=== PATIENT | female | born 1930 | race Caucasian/White ===

== ENCOUNTER 2016-10-28 14:32 | Emergency (ER) | payer OTHER, MEDICARE ==
[~2016-10-28] VITALS: Ht 152.4 cm; Wt 51.3 kg
[~2016-10-28 14:32] MED LIST: BROVANA15 MCG/2 M IH; BUDESONIDE0.5 MG/2 M IH; DAILY VITE1 EAC1 PO; ISOSORBIDE MONO30 MG PO; LEXAPRO20 MG PO; OMEPRAZOLE40 M1 PO; PROAIR HFA8.5 GM IH; TAZTIA XT120 M1 PO
[2016-10-28 15:09] LABS: HEMATOCRIT 43.3 % (36.0-46.0); MCH 28.5 PG (29.0-34.0); MCHC 32.6 G/DL (30.0-36.0); MCV 87.5 FL (83-99); PLATELET COUNT 275 K/uL (156-360); RBC DIS.WIDTH-CV 14.1 % (11.8-14.6); RBC DIS.WIDTH-SD 44.6 % (39-53); RED BLOOD COUNT 4.95 M/uL (3.80-5.20)
[2016-10-28 15:20] LABS: CHLORIDE 106 mEq/L (99-109); POTASSIUM 3.6 mEq/L (3.7-5.4); SODIUM 146 mEq/L (136-147)
[2016-10-28 15:22] LABS: GLUCOSE 138 mg/dL (70-99)
[2016-10-28 15:23] LABS: ANION GAP 12 MEQ/L (2-14)
[2016-10-28 15:25] LABS: GFR ESTIMATE (CALCULATED) > 59 mL/min/
[2016-10-28 15:26] LABS: UREA NITROGEN (BUN) 15 mg/dL (9-23)
[2016-10-28 15:30] LABS: TROP-I INTERPRETATION NEGATIVE; TROPONIN-I 0.01 ng/mL (0.0-0.30)
[2016-10-28] MEDS ORDERED: PREDNISONE50 MG PO (17:41)
[2016-10-28] MEDS ORDERED: PROVENTIL,2.5 MG/3 M IH (17:41)
[2016-10-28 18:20] VITALS: BP 140/79
== END 2016-10-28 19:18 | disposition home or self-care (01) ==
LOC: EME 14:32
DX: J44.9 Chronic obstructive pulmonary disease, unspecified (principal); E78.5 Hyperlipidemia, unspecified; I10 Essential (primary) hypertension; Z86.000 Personal history of in-situ neoplasm of breast; Z90.11 Acquired absence of right breast and nipple
CPT/HCPCS: 71020; 80048; 84484; 85027; 93005; 94640; 99281; 99284; J7512

== ENCOUNTER 2017-06-12 18:10 | Emergency (ER) | payer OTHER, MEDICARE ==
[~2017-06-12] VITALS: Ht 152.4 cm; Wt 50.5 kg
[~2017-06-12 18:10] MED LIST changes: +PREDNISONE50 MG PO; +PROVENTIL,2.5 MG/3 M IH
[2017-06-12] MEDS ORDERED: ULTRAM50 MG PO (21:36)
[2017-06-12 21:44] VITALS: BP 106/66
== END 2017-06-12 21:46 | disposition home or self-care (01) ==
LOC: EME 18:10
DX: S30.0XXA Contusion of lower back and pelvis, initial encounter (principal); M54.5 Low back pain; W18.30XA Fall on same level, unspecified, initial encounter; E78.5 Hyperlipidemia, unspecified; I10 Essential (primary) hypertension; J44.9 Chronic obstructive pulmonary disease, unspecified; Z90.11 Acquired absence of right breast and nipple; Z87.891 Personal history of nicotine dependence
CPT/HCPCS: 72100; 72170; 99281; 99284

== ENCOUNTER 2017-07-03 17:36 | Emergency (ER) | payer OTHER, MEDICARE ==
[~2017-07-03] VITALS: Ht 152.4 cm; Wt 48.7 kg
[~2017-07-03 17:36] MED LIST changes: +ULTRAM50 MG PO
[2017-07-03 18:56] LABS: BASOPHIL COUNT 0.1 K/uL (0-0.1); EOSINOPHIL (%) 5.8 % (0-5); EOSINOPHIL COUNT 0.4 K/uL (0-0.3); HEMATOCRIT 45.9 % (36.0-46.0); IMMATURE GRANULOCYTE (%) 0.1 % (0.0-0.7); INSTRUMENT ABS NEUTROPHIL CT 4.3 K/uL; LYMPHOCYTE COUNT 1.3 K/uL (1.0-2.8); MCHC 31.8 G/DL (30.0-36.0); MCV 87.9 FL (83-99); MEAN PLAT.VOLUME 10.1 uM^3 (9.5-12.4); MONOCYTE (%) 9.4 % (3-12); MONOCYTE COUNT 0.6 K/uL (0-0.8); NEUTROPHIL (%) 64.1 % (45-76); NEUTROPHIL COUNT 4.3 K/uL (1.8-6.4); PLATELET COUNT 266 K/uL (156-360); RBC DIS.WIDTH-CV 15.5 % (11.8-14.6); RBC DIS.WIDTH-SD 50.4 % (39-53); RED BLOOD COUNT 5.22 M/uL (3.80-5.20); WHITE BLOOD COUNT 6.7 K/uL (4.1-10.2)
[2017-07-03 19:06] LABS: INTER. NORMALIZED RATIO 1.1; PROTHROMBIN TIME 11.7 SEC (10.2-12.9)
[2017-07-03 19:08] LABS: CHLORIDE 104 mEq/L (99-109); POTASSIUM 3.6 mEq/L (3.7-5.4); SODIUM 141 mEq/L (136-147)
[2017-07-03 19:09] LABS: PTT 29.5 SEC (25-37)
[2017-07-03 19:10] LABS: GLUCOSE 104 mg/dL (70-99)
[2017-07-03 19:11] LABS: ANION GAP 10 MEQ/L (2-14)
[2017-07-03 19:12] LABS: TOTAL BILIRUBIN 0.5 mg/dL (0.0-1.0)
[2017-07-03 19:13] LABS: ALKALINE PHOSPHATASE 105 IU/L (3-129)
[2017-07-03 19:14] LABS: GFR ESTIMATE (CALCULATED) > 59 mL/min/
[2017-07-03 19:15] LABS: DIRECT BILIRUBIN 0.2 mg/dL (0.0-0.3); UREA NITROGEN (BUN) 16 mg/dL (9-23)
[2017-07-03 19:19] LABS: TROP-I INTERPRETATION NEGATIVE; TROPONIN-I < 0.01 ng/mL (0.0-0.30)
[2017-07-03] MEDS ORDERED: ZITHROMAX250 MG PO (20:33)
[2017-07-03 21:19] VITALS: BP 134/94
== END 2017-07-03 21:21 | disposition home or self-care (01) ==
LOC: EME 17:36
PROVIDERS: Emergency Medicine
DX: J44.1 Chronic obstructive pulmonary disease with (acute) exacerbation (principal); I10 Essential (primary) hypertension; E78.5 Hyperlipidemia, unspecified; K21.9 Gastro-esophageal reflux disease without esophagitis; Z85.9 Personal history of malignant neoplasm, unspecified; Z90.11 Acquired absence of right breast and nipple; Z87.891 Personal history of nicotine dependence
CPT/HCPCS: 71020; 80048; 80076; 83605; 83880; 84484; 85025; 85610; 85730; 94640; 99281; 99285; J1100

== ENCOUNTER 2017-07-11 13:22 | Inpatient (IN) | payer OTHER, MEDICARE ==
[~2017-07-11] VITALS: Ht 152.4 cm; Wt 46.7 kg
[~2017-07-11 13:22] MED LIST changes: +LEXAPRO10 MG PO; -LEXAPRO20 MG PO; +ZITHROMAX250 MG PO
[2017-07-11 15:06] LABS: EOSINOPHIL (%) 0.1 % (0-5); HEMATOCRIT 44.3 % (36.0-46.0); IMMATURE GRANULOCYTE (%) 0.9 % (0.0-0.7); IMMATURE GRANULOCYTE COUNT 0.1 K/uL; INSTRUMENT ABS NEUTROPHIL CT 12.6 K/uL; LYMPHOCYTE COUNT 0.3 K/uL (1.0-2.8); MCH 28.5 PG (29.0-34.0); MCHC 32.3 G/DL (30.0-36.0); MCV 88.4 FL (83-99); MEAN PLAT.VOLUME 10.6 uM^3 (9.5-12.4); MONOCYTE (%) 1.8 % (3-12); MONOCYTE COUNT 0.2 K/uL (0-0.8); NEUTROPHIL (%) 94.7 % (45-76); NEUTROPHIL COUNT 12.6 K/uL (1.8-6.4); PLATELET COUNT 257 K/uL (156-360); RBC DIS.WIDTH-CV 15.9 % (11.8-14.6); RED BLOOD COUNT 5.01 M/uL (3.80-5.20); WHITE BLOOD COUNT 13.3 K/uL (4.1-10.2)
[2017-07-11 15:14] LABS: CHLORIDE 103 mEq/L (99-109); POTASSIUM 3.3 mEq/L (3.7-5.4); SODIUM 142 mEq/L (136-147)
[2017-07-11 15:17] LABS: GLUCOSE 204 mg/dL (70-99)
[2017-07-11 15:18] LABS: ANION GAP 13 MEQ/L (2-14)
[2017-07-11 15:19] LABS: TOTAL BILIRUBIN 0.5 mg/dL (0.0-1.0)
[2017-07-11 15:20] LABS: ALKALINE PHOSPHATASE 92 IU/L (3-129)
[2017-07-11 15:21] LABS: GFR ESTIMATE (CALCULATED) > 59 mL/min/
[2017-07-11 15:22] LABS: UREA NITROGEN (BUN) 20 mg/dL (9-23)
[2017-07-11 15:26] LABS: TROP-I INTERPRETATION NEGATIVE; TROPONIN-I 0.01 ng/mL (0.0-0.30)
[2017-07-11] MEDS ORDERED: MUCINEX1200 MG PO (16:33)
[2017-07-11] MEDS ORDERED: VITAMIN D2000 UNI1 PO (16:34)
[2017-07-11] MEDS ORDERED: TYLENOL REGULA325 MG PO (16:35)
[2017-07-11 18:04] LABS: Estimated Average Glucose 134 mg/dL (70-123); HEMOGLOBIN A1c (GLYCOHEMOGLOB) 6.3 % HGB (Below 5.7)
[2017-07-11 18:10] LABS: ADD MIUA? NO; BILIRUBIN NEGATIVE; BLOOD NEGATIVE; COLOR YELLOW ((YELLOW)); GLUCOSE (STRIP) NEGATIVE; KETONES NEGATIVE; LEUKOCYTES NEGATIVE; NITRITE NEGATIVE; PROTEIN (STRIP) NEGATIVE; SPECIFIC GRAVITY 1.012 (1.000-1.030); UCUL ADDED? NO; UROBILINOGEN 0.2 MG/DL (0.2-1.0)
[2017-07-11 18:25] VITALS: BP 147/91
[2017-07-11 22:20] LABS: POINT-OF-CARE METER ID UU13113717
[2017-07-11 22:31] LABS: TROP-I INTERPRETATION NEGATIVE; TROPONIN-I < 0.01 ng/mL (0.0-0.30)
[2017-07-11 23:43] VITALS: BP 135/81
[2017-07-12] VITALS (7 sets, daily range): BP systolic 121–167; BP diastolic 71–119
[2017-07-12 04:14] LABS: EOSINOPHIL (%) 0 % (0-5); HEMATOCRIT 31.8 % (36.0-46.0); IMMATURE GRANULOCYTE COUNT 0.1 K/uL; INSTRUMENT ABS NEUTROPHIL CT 6.6 K/uL; LYMPHOCYTE COUNT 0.3 K/uL (1.0-2.8); MCH 28.7 PG (29.0-34.0); MCHC 31.8 G/DL (30.0-36.0); MCV 90.3 FL (83-99); MEAN PLAT.VOLUME 11.2 uM^3 (9.5-12.4); MONOCYTE (%) 0.7 % (3-12); MONOCYTE COUNT 0.1 K/uL (0-0.8); NEUTROPHIL COUNT 6.6 K/uL (1.8-6.4); PLATELET COUNT 182 K/uL (156-360); RBC DIS.WIDTH-CV 16.1 % (11.8-14.6); RBC DIS.WIDTH-SD 53.1 % (39-53); RED BLOOD COUNT 3.52 M/uL (3.80-5.20)
[2017-07-12 04:18] LABS: POTASSIUM 3.1 mEq/L (3.7-5.4)
[2017-07-12 04:21] LABS: ANION GAP 24 MEQ/L (2-14)
[2017-07-12 04:22] LABS: CHLORIDE 118 mEq/L (99-109); GLUCOSE 120 mg/dL (70-99); SODIUM 158 mEq/L (136-147)
[2017-07-12 04:23] LABS: GFR ESTIMATE (CALCULATED) > 59 mL/min/
[2017-07-12 04:24] LABS: UREA NITROGEN (BUN) 12 mg/dL (9-23)
[2017-07-12 04:31] LABS: TROP-I INTERPRETATION NEGATIVE; TROPONIN-I < 0.01 ng/mL (0.0-0.30)
[2017-07-12 08:49] LABS: POINT-OF-CARE METER ID UU13113717
[2017-07-12 08:52] LABS: ANION GAP 12 MEQ/L (2-14); CHLORIDE 110 MEQ/L (99-109); GFR ESTIMATE (CALCULATED) > 59 mL/min/; GLUCOSE 149 mg/dL (70-99); UREA NITROGEN (BUN) 16 mg/dL (9-23)
[2017-07-12 08:54] LABS: POTASSIUM 4.2 MEQ/L (3.7-5.4); SODIUM 146 MEQ/L (136-147)
[2017-07-12 12:19] LABS: POINT-OF-CARE METER ID UU13113717
[2017-07-12 17:04] LABS: POINT-OF-CARE METER ID UU14188625
[2017-07-12 21:11] LABS: POINT-OF-CARE METER ID UU14188625
[2017-07-13 01:50] LABS: INFLUENZA A VIRAL ANTIGEN NEGATIVE; INFLUENZA B VIRAL ANTIGEN NEGATIVE
[2017-07-13 07:25] VITALS: BP 188/90
[2017-07-13 11:18] VITALS: BP 142/998
[2017-07-13 12:27] LABS: POINT-OF-CARE METER ID UU13113717
[2017-07-13 15:34] VITALS: BP 148/89
[2017-07-13 17:23] LABS: POINT-OF-CARE METER ID UU14188625
[2017-07-13 19:18] VITALS: BP 152/79
[2017-07-13 21:16] LABS: POINT-OF-CARE METER ID UU14174225
[2017-07-14 00:11] VITALS: BP 150/102
[2017-07-14 00:23] VITALS: BP 145/78
[2017-07-14 03:41] VITALS: BP 153/89
[2017-07-14 07:20] VITALS: BP 165/86
[2017-07-14 08:44] LABS: HEMATOCRIT 41.9 % (36.0-46.0); MCH 27.9 PG (29.0-34.0); MCV 87.3 FL (83-99); MEAN PLAT.VOLUME 10.3 uM^3 (9.5-12.4); RBC DIS.WIDTH-CV 15.8 % (11.8-14.6); RBC DIS.WIDTH-SD 50.4 % (39-53); WHITE BLOOD COUNT 8.3 K/uL (4.1-10.2)
[2017-07-14 08:54] LABS: POINT-OF-CARE METER ID UU14174225
[2017-07-14 09:02] LABS: PLATELET COUNT 242 K/uL (156-360)
[2017-07-14 09:16] LABS: ANION GAP 10 MEQ/L (2-14); CHLORIDE 99 MEQ/L (99-109); GFR ESTIMATE (CALCULATED) > 59 mL/min/; GLUCOSE 162 mg/dL (70-99); MAGNESIUM 1.8 mg/dl (1.3-2.7); SAMPLE HEMOLYSIS CHECK 0; SAMPLE ICTERIC CHECK 0; SAMPLE LIPEMIA CHECK 0; SODIUM 144 MEQ/L (136-147); UREA NITROGEN (BUN) 13 mg/dL (9-23)
[2017-07-14 09:17] LABS: POTASSIUM 2.9 MEQ/L (3.7-5.4)
[2017-07-14 12:49] LABS: POINT-OF-CARE METER ID UU13113717
[2017-07-14 16:41] VITALS: BP 128/78
[2017-07-14 17:11] LABS: POINT-OF-CARE METER ID UU13113717
[2017-07-14 21:46] LABS: POINT-OF-CARE METER ID UU13113717
[2017-07-14 23:21] VITALS: BP 142/95
[2017-07-15 05:56] LABS: HEMATOCRIT 40.1 % (36.0-46.0); MCH 28.3 PG (29.0-34.0); MCHC 31.7 G/DL (30.0-36.0); MCV 89.3 FL (83-99); MEAN PLAT.VOLUME 10.3 uM^3 (9.5-12.4); PLATELET COUNT 222 K/uL (156-360); RBC DIS.WIDTH-SD 52.4 % (39-53); RED BLOOD COUNT 4.49 M/uL (3.80-5.20); WHITE BLOOD COUNT 9.6 K/uL (4.1-10.2)
[2017-07-15 06:43] LABS: ANION GAP 10 MEQ/L (2-14); CHLORIDE 102 MEQ/L (99-109); GFR ESTIMATE (CALCULATED) > 59 mL/min/; GLUCOSE 164 mg/dL (70-99); SAMPLE HEMOLYSIS CHECK 0; SAMPLE ICTERIC CHECK 0; SAMPLE LIPEMIA CHECK 0; SODIUM 143 MEQ/L (136-147)
[2017-07-15 06:46] LABS: MAGNESIUM 2.3 mg/dl (1.3-2.7); POTASSIUM 3.8 MEQ/L (3.7-5.4); UREA NITROGEN (BUN) 30 mg/dL (9-23)
[2017-07-15 07:48] LABS: POINT-OF-CARE METER ID UU14174225
[2017-07-15 08:35] VITALS: BP 130/91
[2017-07-15 12:13] LABS: POINT-OF-CARE METER ID UU13113717; POINT-OF-CARE USER ID STWAMT
[2017-07-15 17:36] LABS: POINT-OF-CARE METER ID UU13113717
[2017-07-15 21:32] LABS: POINT-OF-CARE METER ID UU13113717
[2017-07-15 22:26] VITALS: BP 132/72
[2017-07-16 00:33] VITALS: BP 136/76
[2017-07-16 07:04] VITALS: BP 147/83
[2017-07-16 08:17] LABS: POINT-OF-CARE METER ID UU14174225
[2017-07-16 08:57] LABS: HEMATOCRIT 40.9 % (36.0-46.0); MCH 28.4 PG (29.0-34.0); MCV 88.7 FL (83-99); MEAN PLAT.VOLUME 10.4 uM^3 (9.5-12.4); PLATELET COUNT 229 K/uL (156-360); RBC DIS.WIDTH-CV 16.3 % (11.8-14.6); RED BLOOD COUNT 4.61 M/uL (3.80-5.20); WHITE BLOOD COUNT 9.1 K/uL (4.1-10.2)
[2017-07-16 09:21] LABS: ANION GAP 8 MEQ/L (2-14); CHLORIDE 105 MEQ/L (99-109); GFR ESTIMATE (CALCULATED) > 59 mL/min/; GLUCOSE 155 mg/dL (70-99); POTASSIUM 3.7 MEQ/L (3.7-5.4); SAMPLE HEMOLYSIS CHECK 0; SAMPLE ICTERIC CHECK 0; SAMPLE LIPEMIA CHECK 0; SODIUM 145 MEQ/L (136-147); UREA NITROGEN (BUN) 35 mg/dL (9-23)
[2017-07-16 09:52] LABS: TROP-I INTERPRETATION NEGATIVE; TROPONIN-I 0.02 ng/mL (0.0-0.30)
[2017-07-16 12:01] LABS: POINT-OF-CARE METER ID UU13113717
[2017-07-16 16:28] VITALS: BP 108/67
[2017-07-16 17:41] LABS: POINT-OF-CARE METER ID UU14174225
[2017-07-16 20:35] LABS: POINT-OF-CARE METER ID UU13113717
[2017-07-16 20:55] VITALS: BP 135/69
[2017-07-16 21:51] LABS: METH RESISTANT S AUREUS PCR NEGATIVE (NEGATIVE)
[2017-07-16 21:52] LABS: PROBE CHECK PASS; SPECIMEN PROCESSING CONTROL PASS
[2017-07-17 00:19] VITALS: BP 150/93
[2017-07-17 07:54] VITALS: BP 160/102
[2017-07-17 07:58] LABS: POINT-OF-CARE METER ID UU14188625
[2017-07-17 09:24] LABS: INTERNAL CONTROL VALID? YES
[2017-07-17] MEDS ORDERED: PREDNISONE20 MG PO (09:26)
[2017-07-17] MEDS ORDERED: LEVAQUIN750 MG PO (09:52)
[2017-07-17] MEDS ORDERED: CARDIZEM CD,CA240 MG PO (10:52)
[2017-07-17] MEDS ORDERED: XOPENEX1.25 MG/3 IH (10:55)
== END 2017-07-17 15:08 | DRG 871 ==
LOC: EME 13:22 → 5SOUTH 16:34 → EDOF 16:34 → ENRESERV 16:37 → 5SOUTH 18:03
PROVIDERS: Emergency Medicine; Hospitalist; Internal Medicine; Nurse Practitioner Adult Health; Nurse Practitioner Family; Physician Assistant Medical
DX: A41.9 Sepsis, unspecified organism (principal); J18.9 Pneumonia, unspecified organism; I48.2 Chronic atrial fibrillation; J44.0 Chronic obstructive pulmonary disease with (acute) lower respiratory infection; J44.1 Chronic obstructive pulmonary disease with (acute) exacerbation; R09.02 Hypoxemia; E87.2 Acidosis; I27.20 Pulmonary hypertension, unspecified; I08.1 Rheumatic disorders of both mitral and tricuspid valves; Y95 Nosocomial condition; E11.9 Type 2 diabetes mellitus without complications; F03.90 Unspecified dementia, unspecified severity, without behavioral disturbance, psychotic disturbance, mood disturbance, and anxiety; I10 Essential (primary) hypertension; K21.9 Gastro-esophageal reflux disease without esophagitis; R32 Unspecified urinary incontinence; Z66 Do not resuscitate; Z87.891 Personal history of nicotine dependence; Z23 Encounter for immunization
CPT/HCPCS: 70450; 71010; 71020; 71250; 74176; 80048; 80048 91; 80053; 80202; 81003; 82040; 82310; 82948; 83036; 83605; 83735; 83880; 84484; 85025; 85027; 87040; 87070; 87205; 87449; 87502; 87641; 90686; 92610 GN; 93005; 93306; 94640; 94640 76; 94667; 94668; 94760; 94799; 97530 GP; 99202; 99281; 99285; J1644; J1815; J2543; J2920; J2930; J3370; J3475; J3480; J7030; J7050; J7512

== ENCOUNTER 2017-07-21 10:56 | Observation (INO) | payer OTHER, MEDICARE ==
[~2017-07-21] VITALS: Ht 147.3 cm; Wt 47.0 kg
[~2017-07-21 10:56] MED LIST changes: +CARDIZEM CD,CA240 MG PO; +LEVAQUIN750 MG PO; +MUCINEX1200 MG PO; +PREDNISONE20 MG PO; +TYLENOL REGULA325 MG PO; +VITAMIN D2000 UNI1 PO; +XOPENEX1.25 MG/3 IH
[2017-07-21 12:00] LABS: EOSINOPHIL (%) 0.2 % (0-5); HEMATOCRIT 43.3 % (36.0-46.0); IMMATURE GRANULOCYTE COUNT 0.2 K/uL; INSTRUMENT ABS NEUTROPHIL CT 16.4 K/uL; LYMPHOCYTE COUNT 0.6 K/uL (1.0-2.8); MCH 28.5 PG (29.0-34.0); MCHC 32.3 G/DL (30.0-36.0); MONOCYTE (%) 5.6 % (3-12); NEUTROPHIL (%) 89.7 % (45-76); NEUTROPHIL COUNT 16.4 K/uL (1.8-6.4); RBC DIS.WIDTH-CV 16.5 % (11.8-14.6); RED BLOOD COUNT 4.92 M/uL (3.80-5.20); WHITE BLOOD COUNT 18.3 K/uL (4.1-10.2)
[2017-07-21 12:19] LABS: CHLORIDE 103 mEq/L (99-109); SODIUM 140 mEq/L (136-147)
[2017-07-21 12:21] LABS: ANION GAP 10 MEQ/L (2-14)
[2017-07-21 12:23] LABS: GFR ESTIMATE (CALCULATED) > 59 mL/min/; GLUCOSE 118 mg/dL (70-99); POTASSIUM 4.5 mEq/L (3.7-5.4); TROP-I INTERPRETATION NEGATIVE; TROPONIN-I 0.01 ng/mL (0.0-0.30)
[2017-07-21 12:24] LABS: UREA NITROGEN (BUN) 34 mg/dL (9-23)
[2017-07-21 12:45] LABS: PLAT.SUFFICIENCY ADEQUATE
[2017-07-21 13:01] LABS: PLATELET COUNT UNABLE TO REPORT K/uL (156-360)
[2017-07-21] MEDS ORDERED: POTASSIUM CHLO20 ME2 PO (16:11)
[2017-07-21] MEDS ORDERED: PREDNISONE20 MG PO (16:13)
[2017-07-21] MEDS ORDERED: WELLBUTRIN SR100 MG PO (16:15)
[2017-07-21] MEDS ORDERED: DULCOLAX10 MG PR (16:19)
[2017-07-21] MEDS ORDERED: MILK OF MAGN PO (16:20)
[2017-07-21] MEDS ORDERED: MIRALAX17 GM PO (16:21)
[2017-07-21] MEDS ORDERED: TRAMADOL HCL50 MG PO (16:22)
[2017-07-21 16:50] VITALS: BP 117/65
[2017-07-21 19:26] LABS: TROP-I INTERPRETATION NEGATIVE; TROPONIN-I 0.01 ng/mL (0.0-0.30)
[2017-07-21 19:36] VITALS: BP 138/76
[2017-07-22 00:07] VITALS: BP 121/75
[2017-07-22 01:14] LABS: TROP-I INTERPRETATION NEGATIVE; TROPONIN-I < 0.01 ng/mL (0.0-0.30)
[2017-07-22 03:51] VITALS: BP 129/79
[2017-07-22 05:35] LABS: MCH 28.9 PG (29.0-34.0); MCHC 32.4 G/DL (30.0-36.0); MCV 89.1 FL (83-99); MEAN PLAT.VOLUME 10.5 uM^3 (9.5-12.4); RBC DIS.WIDTH-CV 17.2 % (11.8-14.6); RBC DIS.WIDTH-SD 55.4 % (39-53); WHITE BLOOD COUNT 14.1 K/uL (4.1-10.2)
[2017-07-22 05:41] LABS: PLATELET COUNT 195 K/uL (156-360)
[2017-07-22 05:58] LABS: ALKALINE PHOSPHATASE 59 IU/L (3-129); ANION GAP 6 MEQ/L (2-14); CHLORIDE 103 MEQ/L (99-109); GFR ESTIMATE (CALCULATED) > 59 mL/min/; POTASSIUM 4.4 MEQ/L (3.7-5.4); SAMPLE HEMOLYSIS CHECK 0; SAMPLE ICTERIC CHECK 0; SAMPLE LIPEMIA CHECK 0; SODIUM 144 MEQ/L (136-147); TOTAL BILIRUBIN 0.5 MG/DL (0.0-1.0); UREA NITROGEN (BUN) 36 mg/dL (9-23)
[2017-07-22 05:59] LABS: GLUCOSE 85 mg/dL (70-99)
[2017-07-22 08:20] VITALS: BP 161/86
[2017-07-22 11:16] VITALS: BP 121/68
[2017-07-22] MEDS ORDERED: WELLBUTRIN SR100 MG PO (14:17)
== END 2017-07-22 15:12 ==
LOC: EME 10:56 → EDOF 14:18 → 5WEST 14:18 → ENRESERV 14:19 → EDOF 14:48 → 5WEST 16:46
PROVIDERS: Emergency Medicine; Internal Medicine
DX: R07.9 Chest pain, unspecified (principal); R10.13 Epigastric pain; J44.0 Chronic obstructive pulmonary disease with (acute) lower respiratory infection; J18.9 Pneumonia, unspecified organism; F01.50 Vascular dementia, unspecified severity, without behavioral disturbance, psychotic disturbance, mood disturbance, and anxiety; K59.00 Constipation, unspecified; I10 Essential (primary) hypertension; E78.5 Hyperlipidemia, unspecified; K21.9 Gastro-esophageal reflux disease without esophagitis; I48.91 Unspecified atrial fibrillation; F32.9 Major depressive disorder, single episode, unspecified; Z66 Do not resuscitate; Z85.9 Personal history of malignant neoplasm, unspecified; Z90.11 Acquired absence of right breast and nipple; Z87.891 Personal history of nicotine dependence
CPT/HCPCS: 71010; 74177; 80048; 80053; 82607; 84443; 84484; 85025; 85027; 85379; 85610; 85730; 93005; 94640; 94640 76; 99202; 99281; 99285; G0378; J1650; J7030; J7512; J7626

== ENCOUNTER 2017-07-25 01:31 | Emergency (ER) | payer OTHER, MEDICARE ==
[~2017-07-25] VITALS: Ht 162.6 cm; Wt 51.9 kg
[~2017-07-25 01:31] MED LIST changes: +DULCOLAX10 MG PR; +MILK OF MAGN PO; +MIRALAX17 GM PO; +POTASSIUM CHLO20 ME2 PO; +TRAMADOL HCL50 MG PO; +WELLBUTRIN SR100 MG PO
[2017-07-25 02:15] LABS: HEMATOCRIT 40.4 % (36.0-46.0); MCHC 32.4 G/DL (30.0-36.0); MCV 89.4 FL (83-99); MEAN PLAT.VOLUME 10.4 uM^3 (9.5-12.4); PLATELET COUNT 190 K/uL (156-360); RBC DIS.WIDTH-CV 17.4 % (11.8-14.6); RBC DIS.WIDTH-SD 56.1 % (39-53); RED BLOOD COUNT 4.52 M/uL (3.80-5.20)
[2017-07-25 02:21] LABS: PROTHROMBIN TIME 10.9 SEC (10.2-12.9)
[2017-07-25 02:24] LABS: PTT 25.7 SEC (25-37)
[2017-07-25 02:25] LABS: CHLORIDE 106 mEq/L (99-109); POTASSIUM 4.5 mEq/L (3.7-5.4); SODIUM 140 mEq/L (136-147)
[2017-07-25 02:28] LABS: ANION GAP 11 MEQ/L (2-14)
[2017-07-25 02:29] LABS: GLUCOSE 135 mg/dL (70-99)
[2017-07-25 02:31] LABS: GFR ESTIMATE (CALCULATED) > 59 mL/min/; UREA NITROGEN (BUN) 30 mg/dL (9-23)
[2017-07-25 02:36] LABS: TROP-I INTERPRETATION NEGATIVE; TROPONIN-I < 0.01 ng/mL (0.0-0.30)
[2017-07-25 07:16] VITALS: BP 150/93
== END 2017-07-25 07:17 ==
LOC: EME → EDBD 01:31 → EME 01:31
PROVIDERS: Emergency Medicine
DX: R06.02 Shortness of breath (principal); I10 Essential (primary) hypertension; K21.9 Gastro-esophageal reflux disease without esophagitis; J44.9 Chronic obstructive pulmonary disease, unspecified; E78.5 Hyperlipidemia, unspecified; Z85.3 Personal history of malignant neoplasm of breast; Z87.891 Personal history of nicotine dependence
CPT/HCPCS: 71020; 80048; 84484; 85027; 85610; 85730; 93005; 99281; 99285

== ENCOUNTER 2017-08-11 10:56 | Observation (INO) | payer OTHER, MEDICARE ==
[~2017-08-11] VITALS: Ht 152.4 cm; Wt 46.5 kg
[~2017-08-11 10:56] MED LIST changes: +GUAIFENESIN200 M2 PO; -MUCINEX1200 MG PO
[2017-08-11 11:49] LABS: EOSINOPHIL (%) 0.2 % (0-5); HEMATOCRIT 39.3 % (36.0-46.0); IMMATURE GRANULOCYTE (%) 1.4 % (0.0-0.7); IMMATURE GRANULOCYTE COUNT 0.1 K/uL; INSTRUMENT ABS NEUTROPHIL CT 6.2 K/uL; LYMPHOCYTE COUNT 0.9 K/uL (1.0-2.8); MCH 29.8 PG (29.0-34.0); MCHC 32.6 G/DL (30.0-36.0); MCV 91.6 FL (83-99); MEAN PLAT.VOLUME 10.3 uM^3 (9.5-12.4); MONOCYTE (%) 13.1 % (3-12); MONOCYTE COUNT 1.1 K/uL (0-0.8); NEUTROPHIL (%) 74.6 % (45-76); NEUTROPHIL COUNT 6.2 K/uL (1.8-6.4); PLATELET COUNT 214 K/uL (156-360); RBC DIS.WIDTH-CV 17.2 % (11.8-14.6); RBC DIS.WIDTH-SD 57.3 % (39-53); RED BLOOD COUNT 4.29 M/uL (3.80-5.20); WHITE BLOOD COUNT 8.4 K/uL (4.1-10.2)
[2017-08-11 11:54] LABS: INTER. NORMALIZED RATIO 1.1; PROTHROMBIN TIME 12.5 SEC (10.2-12.9)
[2017-08-11 11:56] LABS: PTT 26.6 SEC (25-37)
[2017-08-11 11:57] LABS: CHLORIDE 106 mEq/L (99-109); POTASSIUM 4.6 mEq/L (3.7-5.4); SODIUM 139 mEq/L (136-147)
[2017-08-11 11:59] LABS: GLUCOSE 119 mg/dL (70-99)
[2017-08-11 12:00] LABS: ANION GAP 10 MEQ/L (2-14)
[2017-08-11 12:03] LABS: GFR ESTIMATE (CALCULATED) > 59 mL/min/
[2017-08-11 12:04] LABS: UREA NITROGEN (BUN) 23 mg/dL (9-23)
[2017-08-11 12:09] LABS: TROP-I INTERPRETATION NEGATIVE; TROPONIN-I 0.01 ng/mL (0.0-0.30)
[2017-08-11] MEDS ORDERED: BUSPAR5 MG PO (14:04)
[2017-08-11] MEDS ORDERED: SENNA8.6 MG PO (14:14)
[2017-08-11] MEDS ORDERED: WELLBUTRIN100 MG PO (14:16)
[2017-08-11] MEDS ORDERED: COLACE100 MG PO (14:17)
[2017-08-11] MEDS ORDERED: DUONEB 2.5-0.5 M3 ML AEROSOL (14:20)
[2017-08-11] MEDS ORDERED: VENTOLIN HFA18 GM IH (14:25)
[2017-08-11 14:31] VITALS: BP 127/88
[2017-08-11 20:00] VITALS: BP 127/83
[2017-08-11 20:40] LABS: TROP-I INTERPRETATION NEGATIVE; TROPONIN-I 0.01 ng/mL (0.0-0.30)
[2017-08-11 23:55] VITALS: BP 106/70
[2017-08-12 03:40] VITALS: BP 117/72
[2017-08-12 05:58] LABS: TROP-I INTERPRETATION NEGATIVE; TROPONIN-I 0.02 ng/mL (0.0-0.30)
[2017-08-12 06:00] LABS: ANION GAP 11 MEQ/L (2-14); CHLORIDE 103 MEQ/L (99-109); GFR ESTIMATE (CALCULATED) > 59 mL/min/; GLUCOSE 96 mg/dL (70-99); POTASSIUM 3.6 MEQ/L (3.7-5.4); SAMPLE HEMOLYSIS CHECK 0; SAMPLE ICTERIC CHECK 0; SAMPLE LIPEMIA CHECK 0; SODIUM 144 MEQ/L (136-147); UREA NITROGEN (BUN) 22 mg/dL (9-23)
[2017-08-12 07:09] VITALS: BP 133/83
[2017-08-12] MEDS ORDERED: PREDNISONE20 MG PO (09:49)
[2017-08-12] MEDS ORDERED: AZITHROMYCIN500 M1 PO (09:49)
[2017-08-12 11:28] VITALS: BP 141/74
== END 2017-08-12 13:04 ==
LOC: EME 10:56 → EDOF 13:07 → 5WEST 13:07 → ENRESERV 13:08 → 5WEST 14:20
PROVIDERS: Emergency Medicine; Internal Medicine
DX: I11.0 Hypertensive heart disease with heart failure (principal); I50.33 Acute on chronic diastolic (congestive) heart failure; I27.20 Pulmonary hypertension, unspecified; J44.9 Chronic obstructive pulmonary disease, unspecified; Z99.81 Dependence on supplemental oxygen; F03.90 Unspecified dementia, unspecified severity, without behavioral disturbance, psychotic disturbance, mood disturbance, and anxiety; I48.91 Unspecified atrial fibrillation; Z86.19 Personal history of other infectious and parasitic diseases; Z87.891 Personal history of nicotine dependence; I34.0 Nonrheumatic mitral (valve) insufficiency; I36.1 Nonrheumatic tricuspid (valve) insufficiency; Z66 Do not resuscitate
CPT/HCPCS: 71010; 80048; 83880; 84484; 85025; 85610; 85730; 93005; 94640; 94799; 99202; 99281; 99284; G0378; J1650; J1940; J7512

== ENCOUNTER 2017-08-30 14:59 | Inpatient (IN) | payer OTHER, MEDICARE ==
[~2017-08-30] VITALS: Ht 152.4 cm; Wt 47.1 kg
[~2017-08-30 14:59] MED LIST changes: +AZITHROMYCIN500 M1 PO; +BUSPAR5 MG PO; +COLACE100 MG PO; +DUONEB 2.5-0.5 M3 ML AEROSOL; +SENNA8.6 MG PO; +VENTOLIN HFA18 GM IH; +WELLBUTRIN100 MG PO
[2017-08-30 16:47] LABS: BASOPHIL COUNT 0.1 K/uL (0-0.1); EOSINOPHIL (%) 0.2 % (0-5); HEMATOCRIT 37.2 % (36.0-46.0); IMMATURE GRANULOCYTE (%) 0.7 % (0.0-0.7); IMMATURE GRANULOCYTE COUNT 0.1 K/uL; INSTRUMENT ABS NEUTROPHIL CT 10.7 K/uL; LYMPHOCYTE COUNT 0.7 K/uL (1.0-2.8); MCH 30.3 PG (29.0-34.0); MCHC 32.5 G/DL (30.0-36.0); MCV 93.2 FL (83-99); MEAN PLAT.VOLUME 9.8 uM^3 (9.5-12.4); MONOCYTE (%) 9.5 % (3-12); MONOCYTE COUNT 1.2 K/uL (0-0.8); NEUTROPHIL (%) 83.9 % (45-76); NEUTROPHIL COUNT 10.7 K/uL (1.8-6.4); PLATELET COUNT 197 K/uL (156-360); RBC DIS.WIDTH-CV 16.3 % (11.8-14.6); RBC DIS.WIDTH-SD 55.5 % (39-53); RED BLOOD COUNT 3.99 M/uL (3.80-5.20); WHITE BLOOD COUNT 12.7 K/uL (4.1-10.2)
[2017-08-30 16:55] LABS: CHLORIDE 104 mEq/L (99-109); SODIUM 141 mEq/L (136-147)
[2017-08-30 16:58] LABS: ANION GAP 11 MEQ/L (2-14)
[2017-08-30 16:59] LABS: TOTAL BILIRUBIN 0.6 mg/dL (0.0-1.0)
[2017-08-30 17:00] LABS: ALKALINE PHOSPHATASE 61 IU/L (3-129)
[2017-08-30 17:01] LABS: GFR ESTIMATE (CALCULATED) > 59 mL/min/
[2017-08-30 17:02] LABS: UREA NITROGEN (BUN) 12 mg/dL (9-23)
[2017-08-30 17:07] LABS: TROP-I INTERPRETATION NEGATIVE; TROPONIN-I 0.02 ng/mL (0.0-0.30)
[2017-08-30 17:24] LABS: GLUCOSE 124 mg/dL (70-99)
[2017-08-30] MEDS ORDERED: LASIX20 MG PO (19:41)
[2017-08-30] MEDS ORDERED: LEVAQUIN500 MG PO (19:45)
[2017-08-30] MEDS ORDERED: OMEPRAZOLE40 M1 PO (19:49)
[2017-08-30] MEDS ORDERED: BROVANA15 MCG/2 M IH (19:51)
[2017-08-30] MEDS ORDERED: DILTIAZEM 24HR240 MG PO (19:55)
[2017-08-30] MEDS ORDERED: SODIUM CHLOR1L 0.9 IV (20:06)
[2017-08-30] MEDS ORDERED: VENTOLIN HFA18 GM IH ×2 (20:12→20:13)
[2017-08-30 22:56] LABS: ADD MIUA? YES; BILIRUBIN NEGATIVE; BLOOD NEGATIVE; COLOR YELLOW ((YELLOW)); GLUCOSE (STRIP) NEGATIVE; KETONES NEGATIVE; LEUKOCYTES TRACE; NITRITE NEGATIVE; PROTEIN (STRIP) NEGATIVE; SPECIFIC GRAVITY 1.012 (1.000-1.030); UROBILINOGEN 0.2 MG/DL (0.2-1.0)
[2017-08-30 23:01] LABS: BACTERIA NONE SEEN /HPF; EPITHELIAL CELLS RARE /HPF; HYALINE CASTS 0-5 /LPF; MUCUS TRACE /LPF; RED BLOOD CELLS 0-5 /HPF (0-5); UCUL ADDED? NO; WHITE BLOOD CELLS 0-5 /HPF (0-5)
[2017-08-31 06:01] LABS: EOSINOPHIL (%) 0 % (0-5); IMMATURE GRANULOCYTE COUNT 0.1 K/uL; INSTRUMENT ABS NEUTROPHIL CT 11.9 K/uL; LYMPHOCYTE COUNT 0.3 K/uL (1.0-2.8); MCH 29.7 PG (29.0-34.0); MCV 92.8 FL (83-99); MEAN PLAT.VOLUME 10.5 uM^3 (9.5-12.4); MONOCYTE (%) 1.4 % (3-12); MONOCYTE COUNT 0.2 K/uL (0-0.8); NEUTROPHIL (%) 95.2 % (45-76); NEUTROPHIL COUNT 11.9 K/uL (1.8-6.4); PLATELET COUNT 197 K/uL (156-360); RBC DIS.WIDTH-CV 16.3 % (11.8-14.6); RBC DIS.WIDTH-SD 55.9 % (39-53); RED BLOOD COUNT 3.77 M/uL (3.80-5.20); WHITE BLOOD COUNT 12.5 K/uL (4.1-10.2)
[2017-08-31 06:26] LABS: ALKALINE PHOSPHATASE 58 IU/L (3-129); ANION GAP 10 MEQ/L (2-14); CHLORIDE 107 MEQ/L (99-109); GFR ESTIMATE (CALCULATED) > 59 mL/min/; GLUCOSE 180 mg/dL (70-99); POTASSIUM 4.2 MEQ/L (3.7-5.4); SAMPLE HEMOLYSIS CHECK 0; SAMPLE ICTERIC CHECK 0; SAMPLE LIPEMIA CHECK 0; SODIUM 143 MEQ/L (136-147); TOTAL BILIRUBIN 0.4 MG/DL (0.0-1.0); UREA NITROGEN (BUN) 18 mg/dL (9-23)
[2017-08-31 07:57] LABS: INTERNAL CONTROL VALID? YES
[2017-08-31 08:20] VITALS: BP 110/61
[2017-08-31 11:23] VITALS: BP 109/67
[2017-08-31 15:25] VITALS: BP 110/56
[2017-08-31 19:46] VITALS: BP 81/52
[2017-08-31 20:18] VITALS: BP 106/58
[2017-08-31 23:17] VITALS: BP 105/62
[2017-09-01 03:52] VITALS: BP 108/65
[2017-09-01 07:07] VITALS: BP 108/72
[2017-09-01 09:06] LABS: HEMATOCRIT 33.8 % (36.0-46.0); MCHC 32.5 G/DL (30.0-36.0); MCV 92.1 FL (83-99); MEAN PLAT.VOLUME 10.1 uM^3 (9.5-12.4); PLATELET COUNT 223 K/uL (156-360); RBC DIS.WIDTH-CV 16.7 % (11.8-14.6); RED BLOOD COUNT 3.67 M/uL (3.80-5.20); WHITE BLOOD COUNT 12.4 K/uL (4.1-10.2)
[2017-09-01 09:35] LABS: ANION GAP 9 MEQ/L (2-14); CHLORIDE 109 MEQ/L (99-109); GFR ESTIMATE (CALCULATED) > 59 mL/min/; GLUCOSE 134 mg/dL (70-99); POTASSIUM 3.8 MEQ/L (3.7-5.4); SAMPLE HEMOLYSIS CHECK 0; SAMPLE ICTERIC CHECK 0; SAMPLE LIPEMIA CHECK 0; SODIUM 145 MEQ/L (136-147); UREA NITROGEN (BUN) 22 mg/dL (9-23)
[2017-09-01 16:21] VITALS: BP 117/65
[2017-09-01 23:30] VITALS: BP 135/88
[2017-09-02 00:19] VITALS: BP 135/62
[2017-09-02 06:14] LABS: EOSINOPHIL (%) 0.1 % (0-5); HEMATOCRIT 33.7 % (36.0-46.0); IMMATURE GRANULOCYTE (%) 0.6 % (0.0-0.7); IMMATURE GRANULOCYTE COUNT 0.1 K/uL; INSTRUMENT ABS NEUTROPHIL CT 9.3 K/uL; LYMPHOCYTE COUNT 0.3 K/uL (1.0-2.8); MCH 29.9 PG (29.0-34.0); MCHC 32.3 G/DL (30.0-36.0); MCV 92.6 FL (83-99); MEAN PLAT.VOLUME 10.4 uM^3 (9.5-12.4); MONOCYTE (%) 1.4 % (3-12); MONOCYTE COUNT 0.1 K/uL (0-0.8); NEUTROPHIL (%) 95.2 % (45-76); NEUTROPHIL COUNT 9.3 K/uL (1.8-6.4); PLATELET COUNT 234 K/uL (156-360); RBC DIS.WIDTH-CV 16.8 % (11.8-14.6); RBC DIS.WIDTH-SD 57.1 % (39-53); RED BLOOD COUNT 3.64 M/uL (3.80-5.20); WHITE BLOOD COUNT 9.8 K/uL (4.1-10.2)
[2017-09-02 06:36] LABS: ANION GAP 11 MEQ/L (2-14); CHLORIDE 109 MEQ/L (99-109); GFR ESTIMATE (CALCULATED) > 59 mL/min/; GLUCOSE 150 mg/dL (70-99); POTASSIUM 3.7 MEQ/L (3.7-5.4); SAMPLE HEMOLYSIS CHECK 0; SAMPLE ICTERIC CHECK 0; SAMPLE LIPEMIA CHECK 0; SODIUM 147 MEQ/L (136-147); UREA NITROGEN (BUN) 27 mg/dL (9-23)
[2017-09-02 07:07] VITALS: BP 150/94
[2017-09-02 15:41] VITALS: BP 122/69
[2017-09-02 18:29] LABS: MAGNESIUM 1.8 mg/dl (1.3-2.7); POTASSIUM 3.2 MEQ/L (3.7-5.4)
[2017-09-02 19:00] VITALS: BP 136/72
[2017-09-02 22:40] VITALS: BP 116/76
[2017-09-03 03:19] VITALS: BP 131/76
[2017-09-03 06:37] VITALS: BP 134/86
[2017-09-03 10:11] LABS: ANION GAP 11 MEQ/L (2-14); CHLORIDE 106 MEQ/L (99-109); GFR ESTIMATE (CALCULATED) > 59 mL/min/; GLUCOSE 210 mg/dL (70-99); POTASSIUM 3.1 MEQ/L (3.7-5.4); SAMPLE HEMOLYSIS CHECK 0; SAMPLE ICTERIC CHECK 0; SAMPLE LIPEMIA CHECK 0; SODIUM 146 MEQ/L (136-147); UREA NITROGEN (BUN) 26 mg/dL (9-23)
[2017-09-03 11:15] VITALS: BP 108/66
[2017-09-03 15:24] VITALS: BP 114/63
[2017-09-03 18:52] VITALS: BP 110/61
[2017-09-03 22:27] VITALS: BP 122/67
[2017-09-04 03:55] VITALS: BP 127/64
[2017-09-04 07:33] VITALS: BP 116/64
[2017-09-04 10:42] LABS: HEMATOCRIT 33.9 % (36.0-46.0); MCH 29.8 PG (29.0-34.0); MCHC 32.4 G/DL (30.0-36.0); MCV 91.9 FL (83-99); MEAN PLAT.VOLUME 10.4 uM^3 (9.5-12.4); PLATELET COUNT 248 K/uL (156-360); RBC DIS.WIDTH-CV 17.2 % (11.8-14.6); RED BLOOD COUNT 3.69 M/uL (3.80-5.20); WHITE BLOOD COUNT 6.4 K/uL (4.1-10.2)
[2017-09-04 11:18] VITALS: BP 135/90
[2017-09-04 13:46] LABS: ANION GAP 12 MEQ/L (2-14); CHLORIDE 106 MEQ/L (99-109); GFR ESTIMATE (CALCULATED) > 59 mL/min/; GLUCOSE 152 mg/dL (70-99); SAMPLE HEMOLYSIS CHECK 1; SAMPLE ICTERIC CHECK 0; SAMPLE LIPEMIA CHECK 0; SODIUM 144 MEQ/L (136-147); UREA NITROGEN (BUN) 33 mg/dL (9-23)
[2017-09-04 13:47] LABS: POTASSIUM 4.5 MEQ/L (3.7-5.4)
[2017-09-04 16:24] VITALS: BP 120/66
[2017-09-04 19:48] VITALS: BP 128/72
[2017-09-04 22:58] VITALS: BP 119/70
[2017-09-05 07:15] VITALS: BP 131/90
[2017-09-05] MEDS ORDERED: PREDNISONE20 MG PO (08:29)
[2017-09-05] MEDS ORDERED: AUGMENTIN875 MG PO (08:29)
[2017-09-05] MEDS ORDERED: DUONEB 2.5-0.5 M3 ML AEROSOL (08:38)
[2017-09-05 15:35] VITALS: BP 130/69
[2017-09-06 00:06] VITALS: BP 136/82
[2017-09-06 09:01] VITALS: BP 140/90
== END 2017-09-06 14:10 | disposition home or self-care (01) | DRG 871 ==
LOC: EME → DELPENDDIS → EDBD 14:59 → EME 14:59 → EDOF 20:11 → 5EAST 20:11 → ENRESERV 20:13 → 5EAST 22:51 → ENPENDDIS 09-05 → 5EAST 09-06 14:10
PROVIDERS: Emergency Medicine; Hospitalist; Physician Assistant
DX: A41.9 Sepsis, unspecified organism (principal); R65.20 Severe sepsis without septic shock; J44.0 Chronic obstructive pulmonary disease with (acute) lower respiratory infection; J18.9 Pneumonia, unspecified organism; Y95 Nosocomial condition; J44.1 Chronic obstructive pulmonary disease with (acute) exacerbation; I11.0 Hypertensive heart disease with heart failure; I50.32 Chronic diastolic (congestive) heart failure; J96.11 Chronic respiratory failure with hypoxia; I27.20 Pulmonary hypertension, unspecified; I95.9 Hypotension, unspecified; Z99.81 Dependence on supplemental oxygen; I48.2 Chronic atrial fibrillation; J98.11 Atelectasis; R33.9 Retention of urine, unspecified; I71.9 Aortic aneurysm of unspecified site, without rupture; K21.9 Gastro-esophageal reflux disease without esophagitis; E78.5 Hyperlipidemia, unspecified; F03.90 Unspecified dementia, unspecified severity, without behavioral disturbance, psychotic disturbance, mood disturbance, and anxiety; F41.9 Anxiety disorder, unspecified; H91.90 Unspecified hearing loss, unspecified ear; F32.9 Major depressive disorder, single episode, unspecified; Z66 Do not resuscitate; Z82.49 Family history of ischemic heart disease and other diseases of the circulatory system; Z83.3 Family history of diabetes mellitus
CPT/HCPCS: 71010; 71020; 71250; 80048; 80053; 80202; 81003; 83605; 83735; 83880; 84132 91; 84484; 85025; 85025 91; 85027; 87040; 87449; 87502; 92610 GN; 94640; 94640 76; 94799; 99202; 99281; 99285; J1644; J2543; J2920; J3370; J3475; J7050; J7120; J7512